=== PATIENT | male | born 1960 | race Caucasian/White ===

== ENCOUNTER 2020-10-22 00:51 | Emergency (ER) | payer OTHER ==
[~2020-10-22] VITALS: Ht 172.7 cm; Wt 68.2 kg
[2020-10-22] MEDS ORDERED: LISI-898 PO (01:08)
[2020-10-22] MEDS ORDERED: ASPI81CH33 PO (01:08)
[2020-10-22] MEDS ORDERED: METO1TAB32 PO (01:08)
[2020-10-22] MEDS ORDERED: SIMV20TA22 PO (01:08)
[2020-10-22 01:18] LABS: BASO # 0.1 10^3/uL (0.0-0.2); BASO % 0.5 % (0.0-1.0); EOS # 0.2 10^3/uL (0.0-0.5); EOS % 1.5 % (0.0-3.0); HEMOGLOBIN 13.7 g/dl (13.5-17.5); LYMPH # 0.7 10^3/uL (1.5-5.0); LYMPH % 5.7 % (24.0-44.0); MEAN CORPUSCULAR HGB CONC 33.4 g/dl (32.0-36.5); MEAN CORPUSCULAR VOLUME 92.8 fl (80.0-96.0); MONO # 1.1 10^3/uL (0.0-0.8); MONO % 8.9 % (2.0-8.0); NEUTROPHILS # 10.6 10^3/uL (1.5-8.5); NEUTROPHILS % 82.8 % (36.0-66.0); PLATELET COUNT, AUTOMATED 197 10^3/uL (150-450); RED BLOOD COUNT 4.42 10^6/uL (4.30-6.10); WHITE BLOOD COUNT 12.8 10^3/uL (4.0-10.0)
[2020-10-22 01:52] LABS: BLOOD UREA NITROGEN 23 MG/DL (7-18); CALCIUM LEVEL 8.4 MG/DL (8.5-10.1); CARBON DIOXIDE LEVEL 26 MEQ/L (21-32); CHLORIDE LEVEL 107 MEQ/L (98-107); CK-MB VALUE MASS 4.4 NG/ML (<3.6); CPK CREATINE PHOSPHOKINASE 133 U/L (39-308); CREATININE FOR GFR 0.89 MG/DL (0.70-1.30); GLOMERULAR FILTRATION RATE > 60.0 (>56); GLUCOSE, FASTING 119 MG/DL (70-100); MB/CK RELATIVE INDEX 3.31 (< OR =4); POTASSIUM SERUM 3.9 MEQ/L (3.5-5.1); SODIUM LEVEL 139 MEQ/L (136-145); TROPONIN I 0.07 NG/ML (< 0.10)
--- NOTE | 2020-10-22 02:08 | REPVR ---
PROCEDURE INFORMATION: Exam: XR Chest Exam date and time: 10/22/2020 1:26 AM Age: 60 years old Clinical indication: Pain; Angina pectoris; Additional info: Chest pain TECHNIQUE: Imaging protocol: XR of the chest. Views: 1 view. COMPARISON: No relevant prior studies available. FINDINGS: Lungs: Unremarkable. No consolidation. Pleural spaces: Unremarkable. No pleural effusion. No pneumothorax. Heart/Mediastinum: Unremarkable. No cardiomegaly. Bones/joints: Unremarkable. IMPRESSION: No acute findings. Electronically signed by: Jaiden Ayala On 10/22/2020 02:07:46 AM
[2020-10-22] MEDS ORDERED: GI COCKTAIL 50ML BTL(HYOSCYAMINE/MAALOX/LIDOCAINE VISCOUS)(1:3:1) PO ONE (02:25)
[2020-10-22 03:46] LABS: CK-MB VALUE MASS 7.6 NG/ML (<3.6); MB/CK RELATIVE INDEX 5.94 (< OR =4); TROPONIN I 0.33 NG/ML (< 0.10)
[2020-10-22] MEDS ORDERED: MORPHINE 2 MG/ML 1ML VIAL (J2270) IV PRN (04:20)
[2020-10-22] MEDS ORDERED: ONDANSETRON 4MG/2ML VIAL IV ONE (04:20)
[2020-10-22 05:46] LABS: CK-MB VALUE MASS 13.9 NG/ML (<3.6); MB/CK RELATIVE INDEX 9.39 (< OR =4); TROPONIN I 1.03 NG/ML (< 0.10)
[2020-10-22] MEDS ORDERED: CLOPIDOGREL 300 MG TAB (PLAVIX) PO ONE (06:30)
[2020-10-22] MEDS ORDERED: HEPARIN DRIP 25,000 UNITS in IV 1 EA IV SCH (06:30)
[2020-10-22] MEDS ORDERED: HEPARIN SOD (PORCINE) 5000UNITS/ML 1ML VIAL/SYRINGE IV ONE (06:30)
[2020-10-22 07:19] LABS: RSV AMPLIFICATION NEGATIVE (NEGATIVE)
[2020-10-22 08:00] VITALS: BP 148/90
--- NOTE | 2020-10-22 09:04 | ECGEPIP ---
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
--- NOTE | 2020-10-22 09:07 | ECGEPIP ---
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
== END 2020-10-22 08:08 | disposition short-term general hospital (02) ==
LOC: M ED 00:51
DX: I21.4 Non-ST elevation (NSTEMI) myocardial infarction (principal); F12.10 Cannabis abuse, uncomplicated; Z95.5 Presence of coronary angioplasty implant and graft
CPT/HCPCS: 36415; 71045; 80048; 82550; 82553; 84484; 85025; 85730; 87631; 93005; 93041; 94760; 96365; 96375; 99285; J1644; J2270; J2405